=== PATIENT | male | born 1980 | race Caucasian/White ===

== ENCOUNTER → 2016-05-21 | Day surgery (SDC) | payer OTHER ==
[2016-05-21 11:22] LABS: HCT 44.6 % (42.0-52.0); HGB 16.2 g/dl (13.2-18.0); MCH 31.5 pg (25.0-31.0); MCHC 36.3 g/dL (32.0-36.0); MCV 86.8 fL (78.0-100.0); MPV 9.8 fL (6.0-9.5); RBC 5.14 M/uL (4.70-6.00); WBC 7.5 K/uL (4.0-10.5)
[2016-05-21 11:37] LABS: ALBUMIN 4.9 g/dL (3.5-5.0); BILIRUBIN - TOTAL 0.6 mg/dL (0.1-1.0); CREATININE 0.8 mg/dL (0.7-1.2); GLOBULIN (CALCULATION) 3.1 g/dL (2.2-4.2); POTASSIUM 4.3 mmol/L (3.5-5.1)
== END | disposition home or self-care (01) ==
LOC: FAS 10:16
PROVIDERS: Surgery
DX: D17.79 Benign lipomatous neoplasm of other sites (principal); K21.9 Gastro-esophageal reflux disease without esophagitis; M85.80 Other specified disorders of bone density and structure, unspecified site; F17.210 Nicotine dependence, cigarettes, uncomplicated; Z87.442 Personal history of urinary calculi; Z79.899 Other long term (current) drug therapy
CPT/HCPCS: 36415; 80053; 88304; J2405; J2704; J3010

== ENCOUNTER 2021-01-27 14:07 | Emergency (ER) | payer OTHER ==
[2021-01-27] MEDS ORDERED: MOBIC7.5 MG PO (16:10)
[2021-01-27] MEDS ORDERED: NORCO 5-325 TA1 EACH PO (16:10)
== END 2021-01-27 16:40 | disposition home or self-care (01) ==
LOC: FER 14:07
DX: S53.431A Radial collateral ligament sprain of right elbow, initial encounter (principal); X50.0XXA Overexertion from strenuous movement or load, initial encounter
CPT/HCPCS: 73030; 73060; 73070; 73090; J1885; J2270; J2405